=== PATIENT | female | born 1960 | race Caucasian/White ===

== ENCOUNTER 2016-09-27 12:17 | Emergency (ER) | payer OTHER ==
[~2016-09-27] VITALS: Ht 162.6 cm; Wt 68.0 kg
[2016-09-27 12:23] VITALS: BP 130/80
--- NOTE | 2016-09-27 12:31 | ED UPPER/LOWER EXTREMITY COMPL ---
History of Present Illness General Chief Complaint: Upper Extremity Injury Stated Complaint: S/P FALL RT SHOU;LIVIER PAIN Source: patient Exam Limitations: clinical condition Allergies Coded Allergies: NO KNOWN ALLERGIES (02/08/11) Reconcile Medications Oxycodone HCl/Acetaminophen (Percocet 5-325 MG Tablet) 5 MG-325 MG TABLET 1-2 TAB PO Q6P PRN PAIN Triage Note: PT STATES SHE FELL AND IS NOW HAVING RIGHT SIDED SHOULDER PAIN. PT REFUSED SLING IN TRIAGE STATES IT MAKES IT HURT MORE. Triage Nurses Notes Reviewed? yes Onset: Abrupt Duration: hour(s): Severity: severe Severity Numbers: 9 Pain/Injury Location: Right: Shoulder. Method of Injury: fall No Modifying Factors: none Associated Symptoms: none HPI: Patient is a 55 YO F with PMH significant for HTN, HLD, anxiety with hyperventilation (on estilalopram) came to the ER after a sustained mechanical fall while trying come out of [facility]. She denies any head injury, loss of consiousness after the fall. Her right shoulder injured with a progressive increase in pain and swelling to the extent that she couldnt move it anymore. There is mild erythema on the superior part of the shoulder, no open wounds evident. She rates 9/10 pain upon arrival, almost in tears. No fever, chills, nausea, vomiting, able to walk around. No other injuries evident. She didnt try any pain medications so far. she had a right wrist injury in the past, when she was given pain medications ( couldnt remember), doesnt have any allergies/reaction to pain meds at that time. (CASEY PORTILLO,TONY) Vital Signs & Intake/Output Vital Signs & Intake/Output Vital Signs Date Time Temp Pulse Resp B/P B/P Pulse O2 O2 Flow FiO2 Mean Ox Delivery Rate 09/27 1223 99.1 83 16 130/80 97 Room Air Past History Travel History Traveled to [place] past 21 day No Medical History Any Pertinent Medical History? see below for history Cardiovascular: hypertension, hyperlipidemia Psychiatric: anxiety Surgical History Surgical History: none Psychosocial History Past Psychosocial History Unobtainable at this time Where do you live Home Who do you live with Family Services at Home None What is your primary language Amharic Tobacco Use: Quit >30 days ago ETOH Use: occasional use Illicit Drug Use: denies illicit drug use Family History Hx Contributory? Yes (TONY PEÑA MD) Review of Systems Review of Systems Constitutional: Reports: see HPI. EENTM: Reports: no symptoms. Respiratory: Reports: no symptoms. Cardiovascular: Reports: no symptoms. Gastrointestinal/Abdominal: Reports: no symptoms. Genitourinary: Reports: no symptoms. Musculoskeletal: Reports: no symptoms. Skin: Reports: erythema. Neurological/Psychological: Reports: no symptoms. All Other Systems: Reviewed and Negative (TONY PEÑA MD) Review of Systems Immunological: Reports: no symptoms. (YOLETTE JASSO MD) Physical Exam Physical Exam General Appearance: well developed/nourished, alert, awake, anxious Head: atraumatic, normal appearance Eyes: Bilateral: normal appearance, PERRL, EOMI. Neck: normal inspection Cardiovascular/Respiratory: regular rate/rhythm Peripheral Pulses: 2+ radial (R), 2+ radial (L) Back: normal inspection Shoulder Left: normal range of motion, normal inspection Shoulder Right: ecchymosis, pain, soft tissue tenderness, limited range of motion Elbow Left: normal range of motion Elbow Right: normal range of motion Hand Left: normal inspection (TONY PEÑA MD) Progress Differential Diagnosis: fracture, sprain Plan of Care: Orders Procedure Date/time Status Durable Medical Equipment 09/27 1310 Active Radiology Impression: fracture Hand-Off Endorsed To: YOLETTE JASSO MD (TONY PEÑA MD) Diagnostic Imaging: Viewed by Me: Radiology Read. Discussed w/RAD: Radiology Read. (YOLETTE JASSO MD) Departure Departure Disposition: HOME OR SELF CARE Condition: Stable Departure Forms: Customer Survey General Discharge Information (TONY PEÑA MD) Departure Clinical Impression Primary Impression: Closed fracture of right proximal humerus Referrals: BERONICA PORTILLO,SETH Harley (PCP/Family) CAMERON PORTILLO,NANCY Additional Instructions: USE SLING TAKE PERCOCET NEEDED FOLLOW UP WITH DR. BARNES Prescriptions: Current Visit Scripts Oxycodone HCl/Acetaminophen (Percocet 5-325 MG Tablet) 1-2 TAB PO Q6P PRN PAIN #20 TAB Resident Co-Sign Statement Statement: ED Attending supervision documentation- [X] I saw and evaluated the patient. I have also reviewed all the pertinent lab results and diagnostic results. I agree with the findings and the plan of care as documented in the Resident's documentation. [X] I have reviewed the ED Record and agree with the Resident's documentation. [] Additions or exceptions (if any) to the Resident's note and plan are summarized below: [Bobby seen and examined this patient. I have read the above note and agree with what has been written. Patient had a mechanical fall and landed on her shoulder. Patient denies hitting her head and there was no loss of consciousness. Patient is complaining of severe pain or shoulder that increases with movement. There is no radiation. Patient has a proximal humeral fracture on x-ray. Sling, pain control, orthopedic follow-up] (LOUISA PORTILLO,YOLETTE Harley)
[2016-09-27] MEDS ORDERED: PERCOCET 5-3251 EACH PO (13:23)
--- NOTE | 2016-09-27 13:26 | RADIOLOGY REPORT ---
EXAMINATION: XR SHOULDER, RIGHT CLINICAL INFORMATION: Shoulder pain after fall. COMPARISON: None TECHNIQUE: Right shoulder, 3 views FINDINGS: Comminuted fracture of the proximal humerus involves the surgical neck and greater tuberosity. The fracture fragments remain in near-anatomic position. The humeral head fragment is well-positioned over the intact glenoid. The right clavicle and acromioclavicular joint are unremarkable. There is an old, healed fracture of the right posterolateral seventh rib. IMPRESSION: Comminuted fracture of the proximal right humerus with bone fragments remaining in near-anatomic position; this represents a Neer one part fracture.
== END 2016-09-27 13:39 ==
LOC: ERH 12:17
DX: S42.201A Unspecified fracture of upper end of right humerus, initial encounter for closed fracture (principal); W19.XXXA Unspecified fall, initial encounter; Y93.01 Activity, walking, marching and hiking; Y92.89 Other specified places as the place of occurrence of the external cause
CPT/HCPCS: 73030-RT